=== PATIENT | female | born 2000 | race Caucasian/White ===

== ENCOUNTER 2020-02-14 14:58 | Emergency (ER) | payer OTHER, SELFPAY ==
[~2020-02-14] VITALS: Ht 162.6 cm; Wt 72.6 kg
[2020-02-14 15:20] VITALS: BP 137/76; Ht 162.6 cm; Wt 72.6 kg
== END 2020-02-14 16:33 | disposition home or self-care (01) ==
LOC: ED 14:58
DX: U07.1 COVID-19 (principal); B34.9 Viral infection, unspecified; R03.0 Elevated blood-pressure reading, without diagnosis of hypertension
CPT/HCPCS: U0003-CS